=== PATIENT | male | born 2000 | race Caucasian/White ===

== ENCOUNTER 2020-05-31 07:04 | Day surgery (SDC) | payer OTHER ==
[~2020-05-31 07:04] MED LIST: Acetaminophen 500 MG Tab PO ONE; Bupivacaine 0.5%/EPINEPHrine 1:200,000 50 ML MDV ONE
[2020-05-31] MEDS ORDERED: Ondansetron 4 MG/2 ML SDV ONE (07:10)
[2020-05-31] MEDS ORDERED: Neostigmine Methylsulfate 1 MG/ML 5 ML Syringe ONE (07:10)
[2020-05-31] MEDS ORDERED: Rocuronium 50 MG/5 ML Vial ONE (07:10)
[2020-05-31] MEDS ORDERED: Dexamethasone 4 MG/ML SDV ONE (07:10)
[2020-05-31] MEDS ORDERED: Succinylcholine 200 MG/10 ML MDV ONE (07:10)
[2020-05-31] MEDS ORDERED: Propofol 200 MG/20 ML SDV ONE (07:10)
[2020-05-31] MEDS ORDERED: Glycopyrrolate 0.2 MG/ML 5 ML MDV ONE (07:10)
[2020-05-31] MEDS ORDERED: fentaNYL 250 MCG/5 ML SDV ONE (07:12)
[2020-05-31] MEDS: Dextrose 5%-Lactated Ringers 1,000 ML IV SCH ×2 (07:35→12:22)
[2020-05-31] MEDS ORDERED: Meropenem 500 MG SDV ONE (07:50)
[2020-05-31] MEDS ORDERED: cefOXitin 2 GM in Sodium Chloride 0.9% 50 ML IV ONE (08:00)
[2020-05-31] MEDS ORDERED: fentaNYL 100 MCG/2 ML SDV ONE (09:02)
[2020-05-31] MEDS ORDERED: Ondansetron 4 MG/2 ML SDV IVPUSH ONE (11:04)
[2020-05-31] MEDS ORDERED: Metoclopramide 10 MG/2 ML SDV IVPUSH PRN (11:05)
[2020-05-31] MEDS ORDERED: Ketorolac 60 MG/2 ML SDV ONE (12:35)
[2020-05-31] MEDS ORDERED: Acetaminophen/HYDROcodone 325-5 MG Tab PO PRN (12:39)
--- NOTE | 2020-06-21 13:50 | OR ---
DATE OF PROCEDURE: 05/31/2020 SURGEON: Regan Gonsales MD PREOPERATIVE DIAGNOSIS: Persistently inflamed pilonidal cyst. POSTOPERATIVE DIAGNOSIS: Persistently inflamed pilonidal cyst. PROCEDURE: Wide excision of persistently inflamed pilonidal cyst (20005). ANESTHESIA: General. INDICATIONS FOR PROCEDURE: A 20-year-old male presenting with persistently inflamed pilonidal cyst. Plan is to proceed with excision of this with primary closure. Potential risks of procedure including bleeding, infection, possible recurrence of the problem over time, and the significant likelihood that the wound may become open despite efforts to have a primary closure successful were all gone over, and the patient wishes to proceed. DETAILS OF PROCEDURE: The patient was taken to the operating room, and after general endotracheal anesthesia was induced, he was placed in a prone position. The sacral and coccygeal areas the skin were then prepped and draped. The area of the cyst was then marked out including the skin port with elliptical incision then being planned. This was carried down through the skin and subcutaneous tissue, and the cyst was then removed. A portion of cyst wall was noted to be present at the initial excision site, and this was then reexcised somewhat deeper, and the 2 specimens were then delivered from the field. The area was irrigated with meropenem-containing saline solution. The incision was then closed with a total of 4 layers of 2-0 Vicryl stitch, 3-0 Vicryl stitch, and 4-0 Vicryl stitch and skin with shannan. A bolster dressing was then placed using #2 Prolene, suturing a tube gauze over the incision while maintaining some pressure over the next several days, and the patient taken to the recovery room in satisfactory condition. There were no evident complications. Regan Gonsales MD /[id number]
== END 2020-05-31 13:35 | disposition home or self-care (01) ==
LOC: JP.SDS 07:04
PROVIDERS: ATTEND Surgery
DX: L05.01 Pilonidal cyst with abscess (principal); E66.9 Obesity, unspecified; Z68.36 Body mass index [BMI] 36.0-36.9, adult
CPT/HCPCS: 36415; 80053; 85027; 88304; A9270-GY; J0330; J0694; J1100; J1885; J2185; J2405; J2704; J2710; J2765; J3010; J3490; J7121